=== PATIENT | female | born 1975 | race Caucasian/White ===

== ENCOUNTER 2024-01-25 12:57 | Outpatient (CLI) | payer OTHER, SELFPAY ==
[2024-01-25 14:06] LABS: Rapid Plasma Reagin Non-Reactive (NonReactive)
[2024-01-25 14:20] LABS: HIV 1/2 Ab P24 Ag Result Negative (Negative)
[2024-01-25 14:22] LABS: Hepatitis B Surface Antigen Negative (Negative)
[2024-01-25 14:29] LABS: HAV RESULT Negative (Negative); Hepatitis B Core IgM Result Negative (Negative)
[2024-01-25 14:39] LABS: Hepatitis C Virus Antibody Negative (Negative)
[2024-01-29 18:09] LABS: Herpes Simplex Type 1 DNA PCR NOT DETECTED; Herpes Simplex Type 2 DNA PCR NOT DETECTED
== END 2024-01-25 12:58 | disposition home or self-care (01) ==
LOC: ANHLAB 13:03
PROVIDERS: Visit Provider Student in an Organized Health Care Education/Training Program
DX: A64 Unspecified sexually transmitted disease (principal)
CPT/HCPCS: 36415; 80074; 86592; 86695; 86696; 86703; 87529; G0432